=== PATIENT | male | born 1955 | race African-American/Black ===

== ENCOUNTER 2017-01-16 15:38 | Emergency (ER) | payer BC, OTHER ==
[2017-03-12] MEDS ORDERED: NEUR600 PO (15:24)
[2017-03-12] MEDS ORDERED: NORCO1 TAB PO (15:24)
[2017-03-12] MEDS ORDERED: ZANAFLEX 4 MG TA4 MG PO (15:24)
[2017-03-12] MEDS ORDERED: CELEBREX2 PO (15:25)
[2017-03-12] MEDS ORDERED: NAP500 PO (15:25)
[2017-03-12] MEDS ORDERED: DIOV160 PO (15:26)
[2017-03-12] MEDS ORDERED: LOP50 PO (15:26)
[2017-03-12] MEDS ORDERED: TRAZ50 PO (15:27)
[2017-03-12] MEDS ORDERED: KLOR-CON 1010 MEQ PO (15:27)
[2017-03-12] MEDS ORDERED: MELATONIN5 M1 PO (15:27)
[2017-03-12] MEDS ORDERED: MULT VITAMINS (15:27)
[2017-03-12] MEDS ORDERED: ZANTAC150 MG PO (15:29)
[2017-03-12] MEDS ORDERED: ALBUTEROL0.083 % INH (15:31)
[2017-03-12] MEDS ORDERED: LUMIGAN2.5 ML OPH (15:44)
== END 2017-01-16 15:49 | disposition home or self-care (01) ==
LOC: ER 15:38
DX: M54.5 Low back pain (principal); I10 Essential (primary) hypertension; K21.9 Gastro-esophageal reflux disease without esophagitis
CPT/HCPCS: 96372; 99283; J1885; J2360